=== PATIENT | male | born 1965 | race Caucasian/White ===

== ENCOUNTER 2016-12-09 06:37 | Outpatient (CLI) | payer OTHER ==
[~2016-12-09] VITALS: Ht 170.2 cm; Wt 76.7 kg
[~2016-12-09 06:37] MED LIST: CELE100C PO
[2016-12-09] MEDS ORDERED: NS 1,000 ML IV SCH (06:45)
[2016-12-09] MEDS ORDERED: LIDOCAINE 2% INJ 100 MG/5 ML SDV (FOR ANES.) As Ordered ONE (07:09)
[2016-12-09] MEDS ORDERED: PROPOFOL 200 MG/20 ML VIAL As Ordered ONE (07:10)
--- NOTE | 2016-12-09 07:58 | ROOR ---
Patient Name: Aric Kumar Procedure Date: 12/09/2016 7:33 AM Date of : 1965 Age: 51 Room: [facility] Gender: Male Note Status: Finalized Procedure: Total Colonoscopy to cecum + Bx. Indications: Screening for colorectal malignant neoplasm Providers: Isidro Bryson MD Referring MD: LEYDI HOLLEY MD Requesting Provider: Medicines: Monitored Anesthesia Care Complications: No immediate complications. Procedure: Pre-Anesthesia Assessment: - The heart rate, respiratory rate, oxygen saturations, blood pressure, adequacy of pulmonary ventilation, and response to care were monitored throughout the procedure. The Colonoscope was introduced through the anus and advanced to the cecum, identified by appendiceal orifice and ileocecal valve. The colonoscopy was performed without difficulty. The patient tolerated the procedure well. The quality of the bowel preparation was excellent. Findings: The perianal and digital rectal examinations were normal. Non-bleeding internal hemorrhoids were found during retroflexion. The hemorrhoids were small and Grade I (internal hemorrhoids that do not prolapse). Scattered small-mouthed diverticula were found in the recto-sigmoid colon, sigmoid colon and descending colon. A localized area of moderately congested, erythematous, inflamed and ulcerated mucosa was found at the ileocecal valve. Biopsies were taken with a cold forceps for histology. The exam was otherwise without abnormality on direct and retroflexion views. Impression: - Non-bleeding internal hemorrhoids. - Diverticulosis in the recto-sigmoid colon, in the sigmoid colon and in the descending colon. - Congested, erythematous, inflamed and ulcerated mucosa at the ileocecal valve. Biopsied. - The examination was otherwise normal on direct and retroflexion views. - The exam was otherwise normal to the cecum. Recommendation: - Patient has a contact number available for emergencies. The signs and symptoms of potential delayed complications were discussed with the patient. Return to normal activities tomorrow. Written discharge instructions were provided to the patient. - High fiber diet. - Discharge patient to home. - Continue present medications. - Await pathology results. - Telephone GI clinic for pathology results in 1 week. - Check Portal Online for Path Results.([email or web address] - Repeat colonoscopy for surveillance based on pathology results. - Return to referring physician. - The findings and recommendations were discussed with the patient's family. Isidor Bryson MD Isidro Bryson MD 12/09/2016 7:58:13 AM This report has been signed electronically. Number of Addenda: 0 Note Initiated On: 12/09/2016 7:33 AM Estimated Blood Loss: Estimated blood loss: none.
[2016-12-09 08:15] VITALS: BP 116/64
== END 2016-12-09 08:21 | disposition home or self-care (01) ==
LOC: M OPP 06:37
PROVIDERS: ATTEND Internal Medicine Gastroenterology
DX: Z12.11 Encounter for screening for malignant neoplasm of colon (principal); K64.0 First degree hemorrhoids; K57.30 Diverticulosis of large intestine without perforation or abscess without bleeding; K63.89 Other specified diseases of intestine; M54.5 Low back pain; Z87.891 Personal history of nicotine dependence; Z79.899 Other long term (current) drug therapy

== ENCOUNTER → 2020-10-30 | Outpatient (CLI) | payer OTHER ==
--- NOTE | 2020-10-30 09:03 | REPVR ---
PROCEDURE INFORMATION: Exam: CT Maxillofacial Without Contrast, Sinus Exam date and time: 10/30/2020 7:29 AM Age: 55 years old Clinical indication: Condition or disease; Other: Chronic pansinusitis TECHNIQUE: Imaging protocol: CT Maxillofacial without contrast. Focus on the sinuses. Radiation optimization: All CT scans at this facility use at least one of these dose optimization techniques: automated exposure control; mA and/or kV adjustment per patient size (includes targeted exams where dose is matched to clinical indication); or iterative reconstruction. COMPARISON: No relevant prior studies available. FINDINGS: Frontal sinuses: There is near opacification of the frontal sinuses. Ethmoid air cells: There is mild ethmoid mucosal thickening. Sphenoid sinuses: There is mild sphenoid sinus mucosal thickening. Maxillary sinuses: There is moderate maxillary sinus mucosal thickening. The maxillary sinus infundibula are obscured by mucosal thickening. Nasal cavity/Septum: There are melissa bullosa of the middle turbinates. Orbital cavity: Orbits are normal. Globes are unremarkable. Bones/joints: Unremarkable. Soft tissues: Unremarkable. IMPRESSION: Sinus mucosal disease as described. Electronically signed by: Manuela Barbosa On 10/30/2020 09:02:59 AM
== END ==
LOC: M RAD 07:18
PROVIDERS: ATTEND Otolaryngology
DX: J32.4 Chronic pansinusitis (principal)

== ENCOUNTER → 2023-10-31 | Outpatient (CLI) | payer OTHER ==
[~2023-10-31] MED LIST changes: +ISOVUE-370 76% 100ML VIAL As Ordered ONE
== END ==
LOC: M RAD 09:37
PROVIDERS: ATTEND Family Medicine
DX: R05.3 Chronic cough (principal)
CPT/HCPCS: 71260; Q9967

== ENCOUNTER → 2023-11-19 | Outpatient (CLI) | payer OTHER ==
[~2023-11-19] MED LIST changes: -ISOVUE-370 76% 100ML VIAL As Ordered ONE
== END ==
LOC: M CARPUL 12:34
PROVIDERS: ATTEND Family Medicine
DX: R05.3 Chronic cough (principal)

== ENCOUNTER → 2024-01-26 | Outpatient (CLI) | payer OTHER ==
[~2024-01-26] MED LIST changes: +METHACHOLINE KIT (6 VIAL.NEB PREMIX) INH ONE
== END ==
LOC: M CARPUL 12:56
PROVIDERS: ATTEND Family Medicine
DX: R05.3 Chronic cough (principal)

== ENCOUNTER → 2024-02-17 | Outpatient (CLI) | payer OTHER ==
[~2024-02-17] MED LIST changes: -METHACHOLINE KIT (6 VIAL.NEB PREMIX) INH ONE
[2024-02-17 17:00] LABS: C REACTIVE PROTEIN QUANTITATIV < 0.40 MG/DL (<1.0)
[2024-02-17 17:03] LABS: RHEUMATOID FACTOR QUANT < 3.5 IU/ML (<14)
[2024-02-20 14:09] LABS: ANA SCREEN, IFA NEGATIVE (NEGATIVE)
[2024-02-21 00:32] LABS: ANTI SCLERODERMA ANTIBODIES <1.0 NEG AI (<1.0 NEG); RNP ANTIBODY <1.0 NEG AI (<1.0 NEG); SM ANTIBODY <1.0 NEG AI (<1.0 NEG); SSA SJOGRENS A <1.0 NEG AI (<1.0 NEG); SSB SJOGRENS B <1.0 NEG AI (<1.0 NEG)
[2024-02-21 01:05] LABS: CYCLIC CITRULLINATED PEPTIDE < 16 UNITS (<20)
[2024-02-23 00:32] LABS: ANCA SCREEN Negative (Negative)
[2024-02-24 14:31] LABS: ANTI JO-1 ANTIBODIES (RDL) < 11 SI (<11); ANTI-EJ AB (RDL) < 11 SI (<11); ANTI-MDA5-AB CADM-140 (RDL) < 11 SI (<11); ANTI-NXP-2 P140 (RDL) < 11 SI (<11); ANTI-OJ AB (RDL) < 11 SI (<11); ANTI-PL-12 AB (RDL) < 11 SI (<11); ANTI-PL-7 AB (RDL) < 11 SI (<11); ANTI-SRP AB (RDL) < 11 SI (<11); ANTI-TIF-1 AB (RDL) < 11 SI (<11); MI 2 BETA ANTIBODIES < 11 SI (<11); MI-2 ANTIBODIES (RDL) < 11 SI (<11)
[2024-02-25 01:58] LABS: ANTI DS-DNA AB NEGATIVE (NEGATIVE)
[2024-02-25 04:13] LABS: ANTI-GLOMERULAR BASEMENT MEMB < 1.0 AI (<1.0)
== END ==
LOC: M LAB 15:10
PROVIDERS: ATTEND Internal Medicine Pulmonary Disease
DX: J84.9 Interstitial pulmonary disease, unspecified (principal)

== ENCOUNTER → 2024-11-23 | Outpatient (CLI) | payer OTHER | LOC: M PLAIMG 07:11 | PROVIDERS: ATTEND Internal Medicine Pulmonary Disease | DX: R91.8 Other nonspecific abnormal finding of lung field (principal) ==

== ENCOUNTER 2025-05-02 15:20 | Emergency (ER) | payer OTHER ==
[~2025-05-02] VITALS: Ht 165.1 cm; Wt 82.9 kg
[2025-05-02] MEDS: RABIES VACCINE HUMAN 2.5 INTERNATIONAL UNITS/ML VIAL (IMOVAX) IM ONE (17:02)
[2025-05-02 17:40] VITALS: BP 124/74; TEMP 98.4; O2SAT 95
[2025-05-05] MEDS ORDERED: metformin (10:58)
[2025-05-05] MEDS ORDERED: AMOX875T2 PO (11:38)
== END 2025-05-02 17:41 | disposition home or self-care (01) ==
LOC: M ED 15:20
DX: Z20.3 Contact with and (suspected) exposure to rabies (principal); Z23 Encounter for immunization; W21.11XA Struck by baseball bat, initial encounter; Y92.009 Unspecified place in unspecified non-institutional (private) residence as the place of occurrence of the external cause; Y93.89 Activity, other specified; Y99.9 Unspecified external cause status; E11.9 Type 2 diabetes mellitus without complications